=== PATIENT | male | born 1990 | race American Indian/Alaskan Native ===

== ENCOUNTER 2017-09-20 21:34 | Emergency (ER) | payer OTHER ==
[2017-09-20 21:51] VITALS: O2SAT 100
--- NOTE | 2017-09-20 23:00 | C.PDOC ---
History Of Present Illness 27 year old male, who takes suboxone and narcotic pain medication regularly, presents to the ED for evaluation of constipation. Patient states he has been constipated intermittently for the past 8 months. Patient has been evaluated by his PMD for these symptoms. He usually takes laxatives twice/week, which allow him to have bowel movements. Patient states he has not been able to move his bowels for the past week. He complains of pain to his rectum and lower abdominal region. Patient also reports having watery leakage two days ago. He denies fever, chills, nausea, and vomiting. Time Seen by Provider: 09/20/17 22:17 Chief Complaint (Nursing): Abdominal Pain History Per: Patient History/Exam Limitations: no limitations Onset/Duration Of Symptoms: Other (1 week ) Current Symptoms Are (Timing): Still Present Location Of Pain/Discomfort: Other (lower abdomen ) Radiation Of Pain To:: None Quality Of Discomfort: "Pain" Associated Symptoms: Constipation. denies: Fever, Chills, Nausea, Vomiting Additional History Per: Patient Past Medical History Reviewed: Historical Data, Nursing Documentation, Vital Signs Vital Signs: Last Vital Signs Temp 98.9 F 09/20/17 21:43 Pulse 116 H 09/20/17 21:43 Resp 16 09/20/17 21:43 BP 119/75 09/20/17 21:43 Pulse Ox 100 09/21/17 01:05 - Medical History PMH: Asthma Surgical History: No Surg Hx Family History: States: Unknown Family Hx - Social History Hx Alcohol Use: No Hx Substance Use: No - Immunization History Hx Influenza Vaccination: No Hx Pneumococcal Vaccination: No Review Of Systems Constitutional: Negative for: Fever, Chills Gastrointestinal: Positive for: Abdominal Pain, Constipation. Negative for: Nausea, Vomiting Physical Exam - Physical Exam Appears: Non-toxic, No Acute Distress Skin: Normal Color, Warm, Dry Head: Atraumatic, Normacephalic Eye(s): bilateral: Normal Inspection Oral Mucosa: Moist Neck: Supple Chest: Symmetrical, No Deformity, No Tenderness Cardiovascular: Rhythm Regular, No Murmur Respiratory: Normal Breath Sounds, No Rales, No Rhonchi, No Wheezing Gastrointestinal/Abdominal: Tenderness (to left lower quadrant and suprapubic regions ), No Guarding, No Rebound, Other (tense ) Rectal: Rectal Tone (normla), Other (vault filled with soft stool) Extremity: Normal ROM, Capillary Refill (less than 2 seconds ) Neurological/Psych: Oriented x3, Normal Speech, Normal Cognition ED Course And Treatment O2 Sat by Pulse Oximetry: 100 (on RA) Pulse Ox Interpretation: Normal - Other Rad Obstructive series X-Ray: Viewed By Me, Read By Radiologist Interpretation: increased stool volume descending and recto sigmoid colon Progress Note: Obstructive Series XR ordered. Fleets enema administered. No stool passed. Manual disimpaction attempted without success. Stool soft and unable to be removed. Patient able to pass stool in the toilet. Reevaluation Time: 01:03 Reassessment Condition: Improved Disposition - Disposition Disposition: HOME/ ROUTINE Disposition Time: 01:03 Condition: IMPROVED Instructions: Fecal Impaction Forms: [facility] ([place]) - Clinical Impression Clinical Impression: Constipation due to opioid therapy - Scribe Statement The provider has reviewed the documentation as recorded by the Scribe (Heather Downing) Provider Attestation: All medical record entries made by the Scribe were at my direction and personally dictated by me. I have reviewed the chart and agree that the record accurately reflects my personal performance of the history, physical exam, medical decision making, and the department course for this patient. I have also personally directed, reviewed, and agree with the discharge instructions and disposition.
[2017-09-21] MEDS ORDERED: Magnesium Citrate Oral SOL (300 ml) PO ONE (00:15)
[2017-09-21] MEDS ORDERED: Magnesium Citrate Oral SOL (300 ml) ONE (00:27)
[2017-09-21 01:29] VITALS: BP 122/84; PULSE 97; RESP 18; TEMP 99.5
--- NOTE | 2017-09-21 08:22 | RAD ---
PROCEDURE: Radiographs of the chest and abdomen (obstructive series) HISTORY: r/o impaction COMPARISON: No prior. TECHNIQUE: AP radiograph of the chest, with upright and supine radiographs of the abdomen. FINDINGS: CHEST: Lungs: No focal consolidation is seen. Cardiovascular: Heart size is within normal limits. Pleura: No pleural effusion is identified. Other findings: No acute fracture identified ABDOMEN AND PELVIS: Bowel: Bowel gas pattern is nonspecific. No air-fluid levels identified to suggest bowel obstruction. There is scattered air in the small and large bowel. Moderate large amount of stool noted throughout the colon. Free air: No free air seen under the diaphragm. Bones: No acute fracture identified. Other findings: None. IMPRESSION: No focal consolidation is seen. Moderate to large amount of stool throughout the colon.
== END 2017-09-21 01:50 | disposition home or self-care (01) ==
LOC: C.ER 21:34
DX: K59.03 Drug induced constipation (principal); T40.2X5A Adverse effect of other opioids, initial encounter; Y92.89 Other specified places as the place of occurrence of the external cause